=== PATIENT | female | born 1965 | race Hispanic/Latino ===

== ENCOUNTER 2020-02-27 09:32 | Outpatient (CLI) | payer OTHER | END 2020-02-27 23:21 | disposition home or self-care (01) | LOC: MAMMO 09:32 | DX: Z12.31 Encounter for screening mammogram for malignant neoplasm of breast (principal) ==

== ENCOUNTER 2021-03-28 09:40 | Emergency (ER) | payer OTHER ==
[~2021-03-28] VITALS: Ht 162.6 cm; Wt 63.5 kg
[2021-03-28 09:54] VITALS: TEMP 97.3
[2021-03-28 11:56] VITALS: BP 136/66
== END 2021-03-28 11:58 | disposition home or self-care (01) ==
LOC: ED 09:40
DX: M25.512 Pain in left shoulder (principal); M75.52 Bursitis of left shoulder; M79.18 Myalgia, other site
CPT/HCPCS: 96372; 99283; J1100; J1885; J2360

== ENCOUNTER 2021-03-30 16:56 | Observation (INO) | payer OTHER ==
[~2021-03-30] VITALS: Ht 162.6 cm; Wt 65.4 kg
[2021-03-30 18:12] LABS: PLATELET COUNT 277 K/uL (152-353)
[2021-03-30 18:40] LABS: PARTIAL THROMBOPLASTIN TIME 24.1 SECONDS (24.5-33.6)
[2021-03-30 18:43] VITALS: BP 101/67; TEMP 98.2; Ht 162.6 cm; Wt 65.4 kg
[2021-03-30 18:44] LABS: POTASSIUM 3.9 mmol/L (3.6-5.2); SODIUM 135 mmol/L (136-145)
--- NOTE | 2021-03-30 18:54 | NUR ---
PT A DIRECT ADMIT FROM PCP, DR MCCANN'S OFFICE AND ARRIVED TO MED-SURG FLOOR AT 1730. DX:CHEST PAIN/ LEFT ARM PAIN. PT DENIES ANY CHEST PAIN OR DISCOMFORT AT TIME OF ADMISSION. PT C/O SEVERE PAIN TO BACK OF NECK AND LEFT ARM. PT STATED THAT PAIN STARTED IN BACK OF NECK ON 03/27/21. PAIN BECAME WORSE SO SHE WENT TO PCP OFFICE THIS AM. PT A&O X4. NAD NOTED. PT HAS 20GA TO RIGHT AC WITH NO SWELLING OR REDNESS NOTED TO SITE. PT PREFERS TO LAY SUPINE WITH BED 30 DEGREES TO DECREASE PAIN IN NECK. PT STABLE.
[2021-03-30 20:00] VITALS: BP 133/81; TEMP 98.5
--- NOTE | 2021-03-30 21:20 | NUR ---
SIOBHAN NOTIFIED AT THIS TIME OF PT'S COMPLAINTS OF SHOULDER AND BACK PAIN- SIOBHAN ORDERED TORADOL 30MG IVP ONE TIME DOSE NOW AND THEN PRN Q6H X'S 4 DOSES, FLEXERIL 10 MG PO ONE TIME DOSE NOW AND THEN Q8H PRN TIMES 3 DOSES, AND MORPHINE 2MG IVP PRN IF OTHER MEDICATION INTERVENTIONS DO NOT WORK. ORDERS NOTED AND CARRIED OUT AT THIS TIME.
--- NOTE | 2021-03-30 21:25 | NUR ---
SIOBHAN NOTIFIED OF WBC COUNT OF 13.0 AND D-DIMER OF 1160 AT THIS TIME. NO NEW ORDERS GIVEN AT THIS TIME.
[2021-03-31] VITALS: BP 128/69; TEMP 98.2
--- NOTE | 2021-03-31 01:09 | NUR ---
MORPHINE 2 MG IVP DOSE GIVEN AT THIS TIME DUE TO PT COMPLAINING OF SEVERE PAIN IN SHOULDERS AND BACK. WILL CONTINUE TO MONITOR. CARDIACS ARE NEGATIVE AND EKG SHOWED SINUS RHYTHM.
[2021-03-31 04:00] VITALS: BP 140/56; TEMP 98.6
--- NOTE | 2021-03-31 04:12 | NUR ---
PT. RESTING QUIETLY AT THIS TIME. NO S/S OF ACUTE DISTRESS AT THIS TIME. BREATHS EVEN AND NON-LABORED. WILL CONTINUE TO MONITOR.
[2021-03-31 08:00] VITALS: BP 113/73; TEMP 97.5
[2021-03-31 12:00] VITALS: BP 111/65; TEMP 98.3
--- NOTE | 2021-03-31 14:08 | NUR ---
PT LAYING SUPINE IN BED READING A BOOK. PT CONTINUES TO C/O PAIN IN THE BACK OF HER NECK AND TO HER LEFT ARM. PT STATED "THE PAIN MEDICINE I HAD LAST NIGHT DID NOT WORK." ENCOURAGED PT TO TRY ANOTHER DOSE OF PAIN MED AND PT AGREED. PT CONTIUES TO C/O NECK AND BACK PAIN AFTER PAIN MED ADMINISTERED. PT HAS HAD BREAKFAST AND LUNCH BROUGHT IN FROM FAMILY. PT A&O X4.
[2021-03-31 16:00] VITALS: BP 102/66; TEMP 98.1
--- NOTE | 2021-03-31 19:15 | NUR ---
PT DISCHARGED HOME PER PCP (SIOBHAN). DISCHARGE INSTRUCTIONS GIVEN TO PT AND PT VERBALIZED UNDERSTANDING. PRESCRIPTIONS AND HOME MEDS GIVEN TO PT. IV SITE TO LEFT FA D/C'D. NO SWELLING OR REDNESS TO SITE. TELEMETRY/LEADS D/C'D. PT RATED NECK/LEFT ARM A "2" PT INSTRUCTED BY PCP AT BEDSIDE DURING ASSESSMENT TO F/U IN OFFICE ON TUESDAY IF PAIN WORSENS AND CONTINUE TO TAKE PAIN MED ORDERED. PT TRANSPORTED OUT OF FACILITY IN WHEELCHAIR AT 1900 AND FAMILY AWAITING TO PICK PT UP.
== END 2021-03-31 17:50 | disposition home or self-care (01) ==
LOC: MED/SURG 16:56
PROVIDERS: ADMIT Family Medicine; ATTEND Family Medicine
DX: R07.89 Other chest pain (principal); M79.602 Pain in left arm; M62.512 Muscle wasting and atrophy, not elsewhere classified, left shoulder
CPT/HCPCS: 36415; 80053; 82550; 84484; 85027; 85379; 85610; 85730; 93005; 94760; 96372; 96374; 99220; G0378; G0379; J1650; J1885; J2270; Q9963

== ENCOUNTER 2022-09-01 11:00 | Outpatient (CLI) | payer OTHER | END 2022-09-01 19:40 | disposition home or self-care (01) | LOC: MAMMO 11:00 | PROVIDERS: ATTEND Nurse Practitioner Primary Care | DX: Z12.31 Encounter for screening mammogram for malignant neoplasm of breast (principal) ==